=== PATIENT | female | born 1990 | race Caucasian/White ===

== ENCOUNTER → 2020-06-08 | Outpatient (CLI) | payer OTHER ==
[~2020-06-08] MED LIST: AMOX500T PO; FAMO40TA3 PO; IBUP1TAB7 PO; MIRT1TAB16 PO; MM S100C PO; QUET25TA3 PO; RIZA5TAB PO; VENTAER INH
== END ==
LOC: M LABSMTC 10:37
PROVIDERS: ATTEND Anesthesiology
DX: Z01.812 Encounter for preprocedural laboratory examination (principal); Z20.822 Contact with and (suspected) exposure to COVID-19

== ENCOUNTER 2020-06-13 10:08 | Day surgery (SDC) | payer OTHER ==
[~2020-06-13] VITALS: Ht 175.3 cm; Wt 90.3 kg
[~2020-06-13 10:08] MED LIST changes: +LR 1,000 ML IV ONE; +QUET1TAB7 PO; -QUET25TA3 PO
[2020-06-13] MEDS ORDERED: UNASYN 3 GM VIAL As Ordered ONE (10:25)
[2020-06-13] MEDS ORDERED: dexameTHASONE 4 MG/ML 1ML VIAL (J1100 PER 1MG) As Ordered ONE (10:26)
[2020-06-13] MEDS ORDERED: AMPICILLIN SOD/SULBACTAM SOD 3 GM in D5W MINI-BAG PLUS 100 ML IV ONE (10:45)
[2020-06-13] MEDS ORDERED: dexameTHASONE 4 MG/ML 1ML VIAL (J1100 PER 1MG) IV ONE (10:45)
[2020-06-13] MEDS ORDERED: ACETAMINOPHEN 1000MG 100ML IV BTL (OFIRMEV) (J0131 PER 10MG) As Ordered ONE (11:23)
[2020-06-13] MEDS ORDERED: ONDANSETRON 4MG/2ML VIAL As Ordered ONE (11:23)
[2020-06-13] MEDS ORDERED: ROCURONIUM BROMIDE 50 MG/5 ML VIAL As Ordered ONE (11:23)
[2020-06-13] MEDS ORDERED: LACRILUBE (AKWA TEARS) OPHTH OINT 3.5 GM As Ordered ONE (11:23)
[2020-06-13] MEDS ORDERED: MIDAZOLAM INJ 2MG/2ML VIAL (J2250 PER 1MG) As Ordered ONE (11:23)
[2020-06-13] MEDS ORDERED: LIDOCAINE 2% 100MG/5ML SDV (FOR ANES.) As Ordered ONE (11:23)
[2020-06-13] MEDS ORDERED: propofoL 200 MG/20 ML VIAL As Ordered ONE (11:23)
[2020-06-13] MEDS ORDERED: SUGAMMADEX SODIUM 500 MG/5 ML VIAL (BRIDION) As Ordered ONE (11:23)
[2020-06-13] MEDS ORDERED: fentaNYL 100 MCG/2 ML INJECTION (J3010) As Ordered ONE (11:23)
[2020-06-13] MEDS ORDERED: LIDOCAINE 2% W/ EPINEPHRINE 1.7 ML DENTAL INJ As Ordered ONE (12:05)
[2020-06-13] MEDS ORDERED: KETOROLAC 60MG 2ML VIAL As Ordered ONE (12:56)
[2020-06-13] MEDS ORDERED: fentaNYL 100 MCG/2 ML INJECTION (J3010) IV PRN (13:45)
[2020-06-13] MEDS ORDERED: ONDANSETRON 4MG/2ML VIAL IV PRN (13:45)
[2020-06-13] MEDS ORDERED: oxyCODONE 5MG TAB PO PRN (13:45)
[2020-06-13 14:35] VITALS: BP 113/67
--- NOTE | 2020-06-13 14:48 | RO ---
OPERATIVE NOTE DATE OF OPERATION: 06/13/2020 PREOPERATIVE DIAGNOSES: 1. Severe dental anxiety. 2. Grossly decayed and symptomatic teeth #15, 18 and 31. POSTOPERATIVE DIAGNOSES: Status post: 1. Severe dental anxiety. 2. Grossly decayed and symptomatic teeth #15, 18 and 31. PROCEDURE: Surgical extraction of teeth #15, 18 and 31. SURGEON: Cristobal Valles DMD ASSISTANT PROFESSOR [employer]: ANESTHESIA: General endotracheal anesthesia via oral TORIE. SPECIMEN: Teeth for gross only. INDICATIONS: Alesha is a pleasant 30-year-old female who was referred to my office by her dentis in need for extraction of three painful teeth. She does report that she has severe dental anxiety and tells me that she wants to be unconscious for the procedure. Clinical exam reveals grossly decayed teeth #15, 18 and 31 as well as #21. 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 I did give her the option of IV conscious sedation in the office versus general anesthesia in operating room setting and she elected to have the latter setting as in the hospital under general anesthesia. All the risks, benefits and alternatives were explained to the patient. Complete history and physical and informed consent were gone over the patient and signed and are in the patient's chart. DESCRIPTION OF PROCEDURE: The patient was taken back to the operating room, she was laid supine on the operating room table. Ulnar nerve protectors were placed. Noninvasive cardiac monitors were applied. The patient underwent general anesthesia and was intubated with an oral TORIE. She was prepped and draped in usual sterile fashion. A time out procedure was performed to identify the patient, procedure and any other precautions. Preoperative antibiotics and steroids were administered in the IV. Moist throat pack was inserted in the patient's oropharynx followed by the administration of 2% Lidocaine with 1:100,000 Epinephrine as local infiltrations and blocks. At this point a full thickness flap in sulcular fashion around teeth #15, 18 and 31 was released. Small buccal trough was made with Surgitome around each tooth area and then forceps were used to luxate the teeth and deliver them with ease. All the sockets were curetted and irrigated, no sinus exposure was noted. Lingual cortices were intact. Inferior alveolar nerve was not noted. The flaps were then closed with 3-0 chromic sutures. Positive gauze hemostasis achieved with ease. At this point the oral cavity was irrigated and suctioned, the throat pack was removed. The patient was awakened from general anesthesia and taken back to the PACU. COMPLICATIONS: None to mention at the time of surgery. ESTIMATED BLOOD LOSS: 10 mL. DRAINS: No drains were placed.
== END 2020-06-13 14:43 | disposition home or self-care (01) ==
LOC: M SDC 10:08
PROVIDERS: ATTEND Dentist
DX: K02.9 Dental caries, unspecified (principal); K21.9 Gastro-esophageal reflux disease without esophagitis; F41.9 Anxiety disorder, unspecified; F32.9 Major depressive disorder, single episode, unspecified; F12.10 Cannabis abuse, uncomplicated; F17.218 Nicotine dependence, cigarettes, with other nicotine-induced disorders; Z79.899 Other long term (current) drug therapy; Z88.5 Allergy status to narcotic agent; Z88.8 Allergy status to other drugs, medicaments and biological substances
CPT/HCPCS: 81025; 88300; D7210; D9223; J1100; J1885; J2250; J2405; J3010